=== PATIENT | male | born 2000 | race Hispanic/Latino ===

== ENCOUNTER 2025-05-22 00:35 | Inpatient (IN) | payer BC, SELFPAY ==
[2025-05-21 17:35] VITALS: BMI 45.6
[2025-05-21 18:00] VITALS: BP 132/78
[2025-05-21 18:04] LABS: Urine Character Clear (Clear)
[2025-05-21 18:05] LABS: Hematocrit 43.5 % (39.0-52.0); Hemoglobin 15.1 g/dL (13.0-18.0); Mean Corp Hgb Conc. 34.7 g/dL (33.0-37.0); Mean Corpuscular Volume 81.5 fL (80.0-94.0); Nucleated Red Blood Cells % 0 % (-); Platelet Count 213 10^3/uL (130-400); Red Cell Dist. Width 12.7 % (11.5-14.5)
[2025-05-21 18:10] LABS: Urine Squamous Cell 0-2 /LPF (Few)
[2025-05-21 18:11] LABS: Urine White Cell 0-2 /HPF (0-5)
[2025-05-21 18:21] LABS: ALT (SGPT) 224 U/L (0-50); AST (SGOT) 119 U/L (17-59); Albumin 4.5 g/dl (3.5-5.0); Alkaline Phosphatase 143 U/L (38-126); Blood Urea Nitrogen 17 mg/dl (9-20); Calcium 9.4 mg/dl (8.4-10.2); Carbon Dioxide 26 mmol/L (22-30); Chloride 104 mmol/L (98-107); Glucose 171 mg/dl (70-99); Lipase 70 U/L (23-300); Potassium 3.7 mmol/L (3.5-5.1); Sodium 137 mmol/L (135-145); Total Protein 7.2 g/dl (6.3-8.2); eGFR > 60.00
[2025-05-21] MEDS: TORADOL 15 MG IV (20:16)
--- NOTE | 2025-05-21 20:26 | ED.GENMED ---
History of Present Illness
General
Chief Complaint: Abdominal Pain
Time Seen by Provider: 05/21/25 19:49
History of Present Illness
History of Present Illness:
25-year-old male without significant past medical history presenting for intermittent pain to the lower abdomen. Patient reports symptoms for the past several days. Pain is primarily in the right lower quadrant of the abdomen. Does note some
discomfort with urination, particularly at the beginning and at the end of the stream. Denies any cloudiness of urine. Denies any abnormal discharge or concern for STD. Feels like the pain goes into his right testicle. Denies any history of
kidney stones. Denies chest pain or difficulty breathing. Denies nausea or vomiting. Denies any changes in his stool. Reports history of appendectomy. Denies additional acute medical complaints
Past History
Past History
ED Past Medical History: None
ED Past Surgical History: None
Social History
Tobacco: Non-smoker
Alcohol: None
Drug: None
Phy Exam
Physical Exam
Physical Exam:
General: Well-appearing, no clinical signs of dehydration, nontoxic and in no acute distress
HEENT: protecting airway
Neck: appears supple
CV: Normal heart rate, regular rhythm
Resp: No accessory muscle use, no increased work of breathing
Abd: Soft and non-distended, focal tenderness to the right lower quadrant without rebound or guarding
Extremities: No deformities, no swelling
Neuro: alert, no focal neurologic deficit
: No abnormality to the testicles, no swelling. No abnormality to the penis
Rectal: deferred
Psych: Normal affect
Skin: Intact
Course
Orders/Labs/Results
Orders:
Orders
05/21/25 17:52
Complete Blood Count/With Diff Urgent
Comprehensive Metabolic Panel Urgent
Lipase Urgent
05/21/25 17:58
Urinalysis Reflex To Culture Urgent
Date Specimen was Collected: 05/21/25
Time Specimen was Collected: 17:49
Urine Microscopic Reflex Cult Urgent
05/21/25 20:06
Ketorolac [Toradol] 15 mg IV NOW STA
05/21/25 20:30
CT Abd/pel Without Iv Or Oral Urgent
Comment:
Reason For Exam: right sided pain, suspected stone
05/21/25 21:47
Acetaminophen [Tylenol] 1,000 mg PO NOW STA
05/21/25 22:32
Piperacillin/Tazo 4.5 Gram [Zosyn] 4.5 gram in 100 ml IV NOW
Abnormal Lab Results
05/21/25 05/21/25
17:52 17:58
WBC 13.0 H 10^3/uL
(4.8-10.8)
MPV 11.0 H fL
(7.4-10.4)
Abs Immat Gran (auto) 0.1 H 10^3/uL
(0-0.05)
Absolute Neuts (auto) 8.7 H 10^3/uL
(1.4-6.5)
Absolute Monos (auto) 0.9 H 10^3/uL
(0.1-0.6)
Creatinine 0.6 L mg/dL
(0.7-1.3)
Glucose 171 H mg/dl
(70-99)
AST 119 H U/L
(17-59)
ALT 224 H U/L
(0-50)
Alkaline Phosphatase 143 H U/L
(38-126)
Ur Occult Blood Reflex 1+ A
(Negative)
Urine RBC 3-6 A /HPF
(0-2)
Urine Bacteria (Reflex) Few A
(Negative)
Urine Glucose 2+ A
(Negative)
Urine Albumin (Reflex) 3+ A
(Neg - Trace)
05/21/25 17:52
05/21/25 17:52
Vital Signs
Initial and Last Documented VS:
Initial Vital Signs
Temp Pulse Resp Pulse Ox
98.7 F 107 15 98
05/21/25 17:47 05/21/25 17:47 05/21/25 17:47 05/21/25 17:47
Last Documented Vital Signs
Temp Pulse Resp Pulse Ox
98.7 F 107 15 98
05/21/25 17:47 05/21/25 17:47 05/21/25 17:47 05/21/25 20:28
MDM/Problems Addressed
MDM/Problems Addressed:
25-year-old male presenting to the emergency department for lower abdominal pain. Vital signs on arrival are significant for mild tachycardia.
On exam, patient resting comfortably, no acute distress. Focal tenderness to the right lower quadrant of the abdomen. Does note associated urinary symptoms. Differential considerations include nephrolithiasis versus cystitis. No history of
appendectomy without concern for appendicitis. No abnormality to the testicles without concern for orchitis/epididymitis/torsion. Labs obtained prior to my test, mild leukocytosis. Also evidence of mild transaminitis, however did have elevation
of LFTs in 2020. No focal right upper quadrant abdominal pain without concern for cholecystitis or choledocholithiasis. Urine does show some blood. Again concern for nephrolithiasis. Plan for CT abdominal imaging. Toradol administered for pain
22:30 - CT shows sigmoid perforation with mild inflammatory soft tissue stranding, suspected diverticulosis versus diverticulitis. The soft tissue stranding is continuous with the margin of the urinary bladder, which is likely patient's urinary
discomfort. However there is no intravesical gas to suggest an enterovesical fistula. Will start patient antibiotics and discussed with colorectal surgery
*Pulse Oximetry
SaO2: 98
Oxygen Mode of Delivery: Room air
Patient hypoxic: no
*Critical Care Note
Total Time (30-74mins, 75-104mins- exclusive of procedures): Not Applicable
ED Attending Note
-
Portions of this chart may have been created with voice recognition software.� Occasional wrong word or��sound alike� substitutions may have occurred due to the inherent limitations of voice recognition software.
Discharge Plan
Departure
Prescriptions:
No Action
No Current Medications
0
Referrals:
UNKNOWN - PT DOES,NOT KNOW [Family Provider]
Interventions
Interventions:
*Risk Screen - Suicide Last Done: 05/21/25 17:47
*General Assessment Last Done: 05/21/25 17:47
*Neglect/Abuse Screening Last Done: 05/21/25 17:47
*ED COVID-19 Vaccine History Last Done: 05/21/25 17:47
*ED Influenza Vaccine History Last Done: 05/21/25 17:47
Discharge Date and Time
Print Language: TUNISIAN
[2025-05-21] MEDS: TYLENOL 1000 MG PO (21:57)
[2025-05-21] MEDS: ZOSYN 100 IV (23:09)
[2025-05-21] MEDS: MORPHINE SULFATE 4 MG IV (23:09)
[2025-05-21] MEDS: NSS 1000 IV (23:10)
--- NOTE | 2025-05-22 00:37 | HPS.HSE ---
Addendum entered and electronically signed by Shon Santa MD 05/22/25 13:36:
Patient is a 25-year-old male with no PMH (was seen in 2019 for abdominal pain, CT at that time showed inflammation in the TI; underwent colonoscopy by Dr. Chowdary 01/2020 and colon/TI appeared normal, random biopsies normal) who presents with acute
abdominal pain for the last 5 days, significantly worsening yesterday. He denies any constipation, diarrhea or hematochezia. He does have rare episodes of abdominal pains that usually resolve in a couple of days, but this happens once a year or
less. Denies any chest pain/SOB or fevers. In the ED, WBC was 13.[address] scan showed sigmoid inflammation associated with microperforation, presumably due to diverticulitis
AFVSS, ABD soft, protuberant, nondistended, diffuse mild tenderness with moderate tenderness in the lower quadrants, no rebound or guarding
WBC 13.2, LFTs mildly elevated, BMP and CRP pending
� Sigmoid colitis with microperforation; presumably diverticulitis, other etiologies include inflammatory and infectious; very unlikely include ischemia or malignancy
� Personally reviewed CT and interpreted; he may have 1 or 2 diverticula, but the burden of diverticulosis is minimal; would rule out inflammatory bowel versus infectious etiology before assuming this is diverticulitis
� Will send stool studies, CRP and fecal calprotectin
�Will consult GI, discussed with Dr. Moran
�Mildly elevated LFTs
�Known history of hepatic steatosis; will defer to GI versus PCP as an outpatient
�Recommend bowel rest with n.p.o. and IVF
� Continue IV Zosyn
� Pain control with Toradol and Dilaudid as needed
� DVT PPx with Lovenox
Original Note:
Family Physician
-
Family Physician: NOT KNOW UNKNOWN - PT DOES
Chief Complaint
-
lower abdomen pain
History of Present Illness
25 year old patient presents to ER with the c/o Abdominal pain. Reports he has been having sharp pain across lower abdomen pain, radiating to both groin since Sunday, pain worsened today which prompted him to visit ER. States he is also having
pain with beginning of urination and at the end of the stream, also he don' think he is emptying enough and feels sore. Denies burning, cloudy urine or blood urine. Denies nausea, vomiting, last normal brown stool 10/ Lunch time. reports chills,
denies chest pain or shortness of breath.
Medical History
Past Medical History
Past Medical History: Reports None
Additional Past Medical History:
Hepatic Fatty infiltration
Past Surgical History: Reports Appendectomy
Social History
Tobacco: Vaping
Alcohol: None
Drug: None
Living: With Family
Family History
Family History: Not pertinent
Allergies / Home Medications
Allergies reflects when Allergies were last updated in [facility].
Home Medications with original date entered in [facility]
Allergy/Medication List:
Allergies
Allergy/AdvReac Type Severity Reaction Status Date / Time
No Known Allergies Allergy Verified 12/03/19 09:38
Home Medications
No Meds [No Current Medications] 11/23/19
Review of Systems
-
History Source: Patient
A 12 point ROS was completed and negative except as noted: Yes
Constitutional: Reports No Symptoms
EENT: Reports No Symptoms
Respiratory: Reports No Symptoms
Cardiac: Reports No Symptoms
Abdomen/GI: Reports Abdominal Pain
: Reports Difficulty Voiding
Musculoskeletal: Reports No Symptoms
Skin: Reports No Symptoms
Neurological: Reports No Symptoms
Endocrine: Reports No Symptoms
Hematologic/Lymphatic: Reports No Symptoms
Psych: Reports No Symptoms
Physical Exam
Vital Signs
Vital Signs
Temp Pulse Resp Pulse Ox
98.7 F 107 15 98
05/21/25 17:47 05/21/25 17:47 05/21/25 17:47 05/21/25 20:28
Physical Exam
General: No Apparent Distress, Conversant and Obese
HEENT: NormoCephalic and Atraumatic
Respiratory: Clear and Non Labored Respirations
Cardiac: S1/S2, Regular Rhythm and Tachycardia
Breast: Deferred by me
GI: Soft, Non Distended, Normal Bowel Sounds and Tender
Rectal: Deferred by Provider
Genito-urinary: No costovertebral tender and Other (neg torsion signs, neg epididymitis signs)
Musculoskeletal: No Clubbing and No Cyanosis
Skin: Warm and Dry
Neuro: Awake and AO x 3
Hematologic/Lymphatic: No Lymphadenopathy
Psych: Calm and Intact Judgment/Insight
Laboratory Results
-
05/21/25 17:52
05/21/25 17:52
Laboratory Results
Total Bilirubin 0.4 mg/dl (0.2-1.3) 05/21/25 17:52
AST 119 U/L (17-59) H 05/21/25 17:52
ALT 224 U/L (0-50) H 05/21/25 17:52
Alkaline Phosphatase 143 U/L (38-126) H 05/21/25 17:52
Lipase 70 U/L (23-300) 05/21/25 17:52
Data Reviewed
-
CT Scan: Report Reviewed by me
Lab Data: Labs Reviewed by me
Impression/Plan
-
25 y/o with lower abdomen pain
# Abdomen pain likely due to
CT abd/pelvis:Sigmoid microperforation with inflammatory soft tissue stranding. No focal collection/abscess. Presumably related to diverticulosis/diverticulitis.
-WBC 13.0
-NPO
-Continue IV Zosyn
-Continue IV Fluids
-Continue IV analgesics
-Admit to Med surgical
-Dr. Felder
#Dysuria Likely due to
CT abd/pelvis: Inflammatory soft tissue stranding is continuous with the margin of the urinary bladder
-Bladder scan
-UA
Full code
SCD's
--- NOTE | 2025-05-22 03:10 | PTCARENOTE ---
Patient received from ED and walked into room. Patient vitals were stable and no sign of distress. Patient was oriented to room and call [facility] within reach.
[2025-05-22 03:14] VITALS: BP 139/82; BMI 44.2
[2025-05-22] MEDS: NSS 1000 IV ×2 (03:32→15:30)
[2025-05-22] MEDS: TORADOL 15 MG IV ×3 (05:20→19:19)
[2025-05-22] MEDS: ZOSYN 100 IV ×3 (05:28→19:14)
--- NOTE | 2025-05-22 07:41 | CON.CRS ---
Consultation
-
Date/Time Consultation Requested: 05/22/2025, 00:30
Date/Time Consultation Performed: 05/22/2025, 00:30
Requesting Provider: Jacques Sy
Performing Provider: Nestor Felder MD
Reason for Consultation: diverticulitis
Medical History
-
Chief Complaint: abdominal pain
History of Present Illness:
25 yo male, with a PMH of an appendectomy and fatty liver, presents to the ER complaining of abdominal pain. He states this has waxed and waned in the past, but it has never been this bad. This time the pain was so severe, he couldn't walk or drive.
He states the pain is 'stinging'. The last time he had pain was a year ago and was more mild. His abdominal pain started in 2019. He has not followed up with his PCP or GI. Back in 2019, he came to the ER with RUQ abdominal pain. CT of the A/P
showed a mildly inflamed terminal ileum, with adjacent mildly prominent lymph nodes, question inflammatory bowel disease such as Crohn's. Appendix within normal limits. Following this, he had a colonoscopy in [address] Chowdary and was negative for
polyps and nonbleeding internal hemorrhoids were found.
CT in the ER showed sigmoid microperforation with inflammatory soft tissue stranding. No focal collection/abscess. Presumably related to diverticulosis/diverticulitis. WBC was 13.0. He states he felt febrile but had no temp on admission to the ER.
Vitals remain normal. Given these findings, we having been consulted for surgical recommendations.
Past Medical History
Past Medical History: Other (fatty liver)
Past Surgical History: Appendectomy
Social History
Tobacco: Vaping
Alcohol: None
Drug: None
Living: With Family
Family History
Family History: Reviewed & Not Pertinent
Allergies / Home Medications
Allergy/AdvReac Type Severity Reaction Status Date / Time
No Known Allergies Allergy Verified 12/03/19 09:38
�Medication �Instructions �Recorded �Confirmed �Type
No Meds [No Current Medications] 11/23/19 05/22/25 History
Review of Systems
-
History Source: Patient
Abdomen/GI: Abdominal Pain
: Dysuria
A 10 point review of systems was completed, and was negative except as per HPI.
Physical Exam
Vital Signs
Temp 98.8 F 05/22/25 03:14
Pulse 88 05/22/25 03:14
Resp Rate 20 05/22/25 03:14
Blood pressure 139/82 05/22/25 03:14
SaO2 99 05/22/25 03:14
05/21/25 05/22/25 05/23/25
06:59 06:59 06:59
Actual Weight 128.026 kg
Body Mass Index (BMI) 44.2
Lab Results / Allergies
05/21/25 17:52
05/21/25 17:52
WBC 13.0 10^3/uL (4.8-10.8) H 05/21/25 17:52
Hgb 15.1 g/dL (13.0-18.0) 05/21/25 17:52
Hct 43.5 % (39.0-52.0) 05/21/25 17:52
Plt Count 213 10^3/uL (130-400) 05/21/25 17:52
Abs Immat Gran (auto) 0.1 10^3/uL (0-0.05) H 05/21/25 17:52
Neutrophils % 66.7 % (42.2-75.2) 05/21/25 17:52
Allergy/AdvReac Type Severity Reaction Status Date / Time
No Known Allergies Allergy Verified 12/03/19 09:38
Physical Exam
General: Well Developed, Well Nourished and No Apparent Distress
GI: Soft and Tender (RUQ - moderate, b/l lower abdominal - mild)
Skin: Warm and Dry
Neuro: AO x 3
Psych: Calm
Data Reviewed
-
CT Scan: Image Personally Visualized and interpreted, Report Reviewed by me and Discussed with Patient
Medical Tests (Nuc Med, Echo etc): Image Personally Visualized and interpreted, Report Reviewed by me and Discussed with Patient
Old Records: Reviewed
Assessment / Plan
-
Assessment: 25yo male with a five year history of abdominal pain, found with sigmoid microperforation with inflammatory soft tissue stranding
Plan:
-Remain NPO
-Trend WBC and CRP, labs ordered this AM
-No plans for surgery at this time, if he worsens, he will require a colectomy with colostomy creation
-Continue IV antibiotics
-Consult gastroenterology - discussed case with Dr. Moran
-Stool cultures and c.diff pending
-Recommend DVT prophylaxis
-Will follow
[2025-05-22 08:00] VITALS: BP 121/76
[2025-05-22 08:49] LABS: Hematocrit 39.5 % (39.0-52.0); Hemoglobin 13.4 g/dL (13.0-18.0); Mean Corp Hgb Conc. 33.9 g/dL (33.0-37.0); Mean Corpuscular Volume 83.0 fL (80.0-94.0); Nucleated Red Blood Cells % 0 % (-); Platelet Count 180 10^3/uL (130-400); Red Cell Dist. Width 12.8 % (11.5-14.5)
[2025-05-22 09:12] LABS: Blood Urea Nitrogen 14 mg/dl (9-20); Calcium 8.5 mg/dl (8.4-10.2); Carbon Dioxide 26 mmol/L (22-30); Chloride 108 mmol/L (98-107); Estimated Creatinine Clearance > 125 ml/min; Glucose 164 mg/dl (70-99); Potassium 3.8 mmol/L (3.5-5.1); Sodium 138 mmol/L (135-145); eGFR > 60.00
[2025-05-22 09:13] LABS: C-Reactive Protein 72.70 mg/L (0.0-10.00)
[2025-05-22] MEDS: MORPHINE SULFATE 2 MG IV ×2 (10:39→16:57)
--- NOTE | 2025-05-22 11:04 | CM ---
Patient seen at bedside on . Patient states that he lives with his parents in a 2 story home but may go home with his girlfriend pending how he feels closer to discharge. Patient does not have PCP at this time but is open to looking at list of
PCP options. Patient uses the [facility] for pharmacy needs. Patient plan is for discharge home with no needs at this time.
Plan; home with family vs home with girlfriend; watch for any VN needs.
--- NOTE | 2025-05-22 12:20 | CON.GI ---
Addendum entered and electronically signed by Marcial Moran MD 05/22/25 19:31:
I personally performed a history and physical exam of the patient and discussed management with the resident. I reviewed the resident's note and agree with the documented findings and plan of care HPI/CC.
25-year-old male with past medical history of CT in 2019 that showed mildly inflamed terminal ileum with prominent lymph nodes underwent a colonoscopy with Dr. Chowdary which was negative for any signs of Crohn's. Since that time, according to the
patient and the family at bedside, he has had more frequent bowel movements although solid. His feels like a sensitive is more stomach and 30 minutes after eating he often burps and has a bowel movement. Last month he had an episode of food
poisoning and was constipated and took laxatives and had severe abdominal pain. Now he is coming in with right-sided abdominal pain that shoots to the left side that radiates also to his testicles and anus. He also has fevers. Denies any NSAID
use, recent alcohol use. He underwent a CT scan which showed sigmoid microperforation with inflammatory soft tissue stranding suspected related to diverticulitis. Incidentally found fatty liver.
Differential diagnosis includes diverticulitis, IBD, less likely colon malignancy. Plan for colonoscopy in 6 to 8 weeks outpatient. I have given an appointment with me in the office June 17 to schedule colonoscopy. He also was incidentally
found to have fatty liver and we can work this up as an outpatient. This was briefly reviewed with the patient today.
In the interim, recommend antibiotics, pain medication, n.p.o., plan for surgery. I discussed with colorectal surgery Dr. Santa as well.
GI will sign off. Please call with any questions or issues.
Original Note:
Consultation
-
Date/Time Consultation Requested: 05/22/2025
Date/Time Consultation Performed: 05/22/2025
Requesting Provider: Melody Joya PA-C
Performing Provider: Sunil Cole Kimberly
Reason for Consultation: Perforated sigmoid colon
Medical History
Chief Complaint / HPI
Chief Complaint: Perforated sigmoid colon
History of Present Illness:
Mr. Britt is a 25 yo male, with a PMH of an appendectomy and fatty liver, presents to the ER complaining of abdominal pain. He states this has waxed and waned in the past specifically food poisoning which made him constipated and he took miralax,
but it has never been this bad. This time the pain was so severe, he couldn't walk or drive. He states the pain is 'stinging'. The last time he had pain was a year ago and was more mild. His abdominal pain started in 2019. He has not followed up
with his PCP or GI. Back in 2019, he came to the ER with RLQ abdominal pain. CT of the A/P showed a mildly inflamed terminal ileum, with adjacent mildly prominent lymph nodes, question inflammatory bowel disease such as Crohn's. Appendix within
normal limits. Following this, he had a colonoscopy in [address] Chowdary and was negative for polyps and nonbleeding internal hemorrhoids were found. This episode started about 5 days ago and the pain started gradually 3 out of 10 pain up to 8-9 out
of 10 pain. 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 He states that the pain alleviated slightly with Tylenol and worsened
with defecation and urination. He denies fevers chills nausea or vomiting. He denies chronic NSAID use, and occasional alcohol use with 1 drink in the past 3 months. He does endorse drinking heavily last year during holidays. He reports having
formed bowel movements 3-4 times a day with no blood.
CT in the ER showed sigmoid microperforation with inflammatory soft tissue stranding. No focal collection/abscess. Presumably related to diverticulosis/diverticulitis. WBC was 13.0. He states he felt febrile but had no temp on admission to the ER.
He reports continued to have fevers and chills including today, with a recorded temperature of 101.9. He was started on IV fluids and Zosyn and pain medication with mild improvement in symptoms.
Past Medical History
Past Medical History: Other (Fatty liver)
Past Surgical History: Appendectomy
Social History
Tobacco: Vaping
Alcohol: Occasional
Drug: None
Living: With Family
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
Family History
Family History: Reviewed & Not Pertinent
Allergies / Home Medications
Allergy/AdvReac Type Severity Reaction Status Date / Time
No Known Allergies Allergy Verified 12/03/19 09:38
�Medication �Instructions �Recorded
No Meds [No Current Medications] 11/23/19
Review of Systems
-
History Source: Patient
Constitutional: Reports Fever and Chills
EENT: Reports No Symptoms; Denies Sore Throat or Runny Nose
Respiratory: Reports No Symptoms; Denies Cough or Trouble Breathing
Cardiac: Reports No Symptoms; Denies Chest Pain or Palpitations
Abdomen/GI: Reports Abdominal Pain and Nausea; Denies Vomiting, Diarrhea, Constipated, Bloody Stools or Black Stools
: Reports Dysuria
Musculoskeletal: Reports No Symptoms
Vital Signs
Temp Pulse Resp BP Pulse Ox
98.9 F 79 16 121/76 99
05/22/25 08:00 05/22/25 08:00 05/22/25 08:00 05/22/25 08:00 05/22/25 08:00
Physical Exam
Exam
General: Well Developed, Well Nourished and Pain
HEENT: Normocephalic and Anicteric
Respiratory: Clear, Wheezes and Non Labored Respirations
Cardiac: S1/S2 and Regular Rhythm
GI: Soft, Non Distended and Tender (Diffusely, most tenderness in the lower abdominal region, no guarding or rebound); Negative Normal Bowel Sounds (Hypoactive)
Skin: Warm and Dry
Neuro: Awake, Alert and Oriented
Results
WBC 13.2 10^3/uL (4.8-10.8) H 05/22/25 08:28
Hgb 13.4 g/dL (13.0-18.0) 05/22/25 08:28
Hct 39.5 % (39.0-52.0) 05/22/25 08:28
MCV 83.0 fL (80.0-94.0) 05/22/25 08:28
Plt Count 180 10^3/uL (130-400) 05/22/25 08:28
Absolute Neuts (auto) 9.1 10^3/uL (1.4-6.5) H 05/22/25 08:28
Sodium 138 mmol/L (135-145) 05/22/25 08:
Potassium 3.8 mmol/L (3.5-5.1) 05/22/25 08:28
Chloride 108 mmol/L (98-107) H 05/22/25 08:28
Carbon Dioxide 26 mmol/L (22-30) 05/22/25 08:28
BUN 14 mg/dl (9-20) 05/22/25 08:28
Creatinine 0.7 mg/dL (0.7-1.3) 05/22/25 08:28
Calcium 8.5 mg/dl (8.4-10.2) 05/22/25 08:28
Total Bilirubin 0.4 mg/dl (0.2-1.3) 05/21/25 17:52
AST 119 U/L (17-59) H 05/21/25 17:52
ALT 224 U/L (0-50) H 05/21/25 17:52
Alkaline Phosphatase 143 U/L (38-126) H 05/21/25 17:52
Lipase 70 U/L (23-300) 05/21/25 17:52
Diagnostic Image Results:
CT abdomen pelvis 05/21/25
IMPRESSION:
Sigmoid microperforation with inflammatory soft tissue stranding. No focal collection/abscess. Presumably related to diverticulosis/diverticulitis.
Inflammatory soft tissue stranding is continuous with the margin of the urinary bladder. There is no intravesical gas identified to suggest enterovesical fistula.
Fatty infiltration of liver.
Prior GI Procedures:
EGD: None
Colonoscopy:
02/11/2020
Impression: - The examined portion of the ileum was normal. Biopsied.
- Non-bleeding internal hemorrhoids.
- The examination was otherwise normal.
- Biopsies were taken with a cold forceps from the right
colon and left colon for evaluation of microscopic
colitis.
Pathology report:
A. Ileum, random, biopsy:
-Small intestinal mucosa with no specific pathologic change.
B. Colon, random right, biopsy:
-Colonic mucosa with no specific pathologic change.
C. Colon, random left, biopsy:
-Colonic mucosa with no specific pathologic change
Assessment / Plan
-
Patient is a 25-year-old male with PMH of fatty liver who presents with acute abdominal pain for the last 5 days, significantly worsening yesterday. He denies any constipation, diarrhea or hematochezia. He does have rare episodes of abdominal
pains that usually resolve in a couple of days, but this happens once a year or less. In the ED, WBC was 13.[address] scan showed sigmoid inflammation associated with microperforation, presumably due to diverticulitis
# Sigmoid microperforation
Possibly in the setting of diverticulitis
Colitis
Undiagnosed inflammatory bowel disease
- N.p.o.
- Antibiotics on Zosyn
- Pain medication
- Plan for outpatient colonoscopy in 6-8weeks
- Supportive care
This is a preliminary note, please refer to attending note for final recommendations.
-
-
Thank you for consultation and allowing me to participate in the patient's care. Please call the blood donor recruiter GI physician during the after hours with any questions or concerns.
[2025-05-22 12:30] VITALS: BP 139/96
[2025-05-22] MEDS: TYLENOL 650 MG PO ×2 (13:55→19:58)
[2025-05-22 15:55] VITALS: BP 132/82
[2025-05-22 23:13] VITALS: BP 128/84
[2025-05-23] MEDS: TORADOL 15 MG IV ×3 (02:09→19:47)
[2025-05-23] MEDS: ZOSYN 100 IV ×4 (02:09→19:45)
[2025-05-23 07:00] VITALS: BP 151/96
[2025-05-23 07:47] LABS: Blood Urea Nitrogen 13 mg/dl (9-20); Calcium 8.5 mg/dl (8.4-10.2); Carbon Dioxide 25 mmol/L (22-30); Chloride 108 mmol/L (98-107); Estimated Creatinine Clearance > 125 ml/min; Glucose 127 mg/dl (70-99); Potassium 3.4 mmol/L (3.5-5.1); Sodium 139 mmol/L (135-145); eGFR > 60.00
[2025-05-23 08:06] LABS: C-Reactive Protein 221.80 mg/L (0.0-10.00)
[2025-05-23] MEDS: NSS 1000 IV ×2 (08:38→19:45)
[2025-05-23 13:05] LABS: Hematocrit 40.2 % (39.0-52.0); Hemoglobin 13.4 g/dL (13.0-18.0); Mean Corp Hgb Conc. 33.3 g/dL (33.0-37.0); Mean Corpuscular Volume 85.7 fL (80.0-94.0); Platelet Count 176 10^3/uL (130-400); Red Cell Dist. Width 13.1 % (11.5-14.5)
--- NOTE | 2025-05-23 13:14 | W.PN.CRS1 ---
Today's Communication / Plan
-
As below
Assessment/Plan
-
25-year-old male with no PMH (was seen in 2019 for abdominal pain, CT at that time showed inflammation in the TI; underwent colonoscopy by Dr. Chowdary 01/2020 and colon/TI appeared normal, random biopsies normal) who presents with acute abdominal pain for
the last 5 days, significantly worsening yesterday. He denies any constipation, diarrhea or hematochezia. He does have rare episodes of abdominal pains that usually resolve in a couple of days, but this happens once a year or less. Denies any
chest pain/SOB or fevers. In the ED, WBC was 13.[address] scan showed sigmoid inflammation associated with microperforation, presumably due to diverticulitis
Tmax 101.9, no fevers today VSS
WBC 16.9 from 13.2, Hb stable, CR 0.6, CRP 221 from 72
� Sigmoid colitis with microperforation; presumably diverticulitis, other etiologies include inflammatory and infectious; very unlikely include ischemia or malignancy
� Appreciate GI, will need cscope as outpatient in 6-8 weeks
�C. difficile negative, stool studies and fecal pending
�Mildly elevated LFTs, GI will follow-up as outpatient
�Known history of hepatic steatosis
� Okay for clears, continue IVF
� Continue IV Zosyn
� Pain control with Toradol and Dilaudid as needed
� DVT PPx with Lovenox
Subjective Data
Subjective Data
Date of Service: May 23, 2025
No overnight events. Patient states that he feels better and his pain has improved somewhat. Denies any N/V. Has had a few liquid stools.
Objective Data
-
Vital Signs
Temp Pulse Resp BP Pulse Ox
98.2 F 101 16 151/96 97
05/23/25 07:00 05/23/25 07:00 05/23/25 07:00 05/23/25 07:00 05/23/25 07:00
Intake & Output
05/22/25 05/23/25 05/24/25
06:59 06:59 06:59
Output Total 850 / 850 300 / 300
Balance -850 / -850 -300 / -300
Output:
Urine, Voided 850 / 850 300 / 300
Other:
Number of approximated MODERATE 1 2
amounts of urine
Lab Results
05/23/25 07:12
05/23/25 07:11
Physical Exam
-
General: No Acute Distress and AOx3
HEENT: Grossly Normal
Abdomen: Soft, Non Distended and Tender (Mildly diffusely tender, mildly to moderately tender in the lower abdomen, no rebound or guarding, improved from yesterday)
Skin: Warm and Dry
[2025-05-23] MEDS: TYLENOL 650 MG PO ×2 (13:58→22:03)
[2025-05-23 15:00] VITALS: BP 144/82
[2025-05-23] MEDS: LOVENOX 40 MG SC (17:30)
[2025-05-23 23:29] VITALS: BP 139/82
[2025-05-24] MEDS: ZOSYN 100 IV ×4 (02:57→21:30)
[2025-05-24] MEDS: NSS 1000 IV (04:07)
[2025-05-24] MEDS: TORADOL 15 MG IV (04:13)
[2025-05-24 07:10] VITALS: BP 134/87
[2025-05-24 08:01] LABS: Blood Urea Nitrogen 10 mg/dl (9-20); Calcium 8.4 mg/dl (8.4-10.2); Carbon Dioxide 25 mmol/L (22-30); Chloride 107 mmol/L (98-107); Estimated Creatinine Clearance > 125 ml/min; Glucose 113 mg/dl (70-99); Potassium 3.3 mmol/L (3.5-5.1); Sodium 137 mmol/L (135-145); eGFR > 60.00
[2025-05-24 08:19] LABS: C-Reactive Protein 189.70 mg/L (0.0-10.00)
[2025-05-24] MEDS: NSS IV (08:37)
[2025-05-24 09:05] LABS: Hematocrit 38.8 % (39.0-52.0); Hemoglobin 13.1 g/dL (13.0-18.0); Mean Corp Hgb Conc. 33.8 g/dL (33.0-37.0); Mean Corpuscular Volume 83.6 fL (80.0-94.0); Platelet Count 173 10^3/uL (130-400); Red Cell Dist. Width 12.8 % (11.5-14.5)
[2025-05-24] MEDS: KCL 1020 MEQ IV ×2 (10:32→21:18)
--- NOTE | 2025-05-24 14:22 | W.PN.CRS1 ---
Addendum entered and electronically signed by Shon Santa MD 05/24/25 19:36:
I saw and examined the patient.
The SALES DRIVER's note was reviewed and I agree with the note.
� Advance to regular
� Continue IV Zosyn
� Pain control with Toradol and morphine as needed; will add oral options
Original Note:
Today's Communication / Plan
-
Continue liquids
Assessment/Plan
-
25-year-old male with no PMH (was seen in 2019 for abdominal pain, CT at that time showed inflammation in the TI; underwent colonoscopy by Dr. Chowdary 01/2020 and colon/TI appeared normal, random biopsies normal) who presents with acute abdominal pain for
the last 5 days, significantly worsening yesterday. He denies any constipation, diarrhea or hematochezia. He does have rare episodes of abdominal pains that usually resolve in a couple of days, but this happens once a year or less. Denies any
chest pain/SOB or fevers. In the ED, WBC was 13.[address] scan showed sigmoid inflammation associated with microperforation, presumably due to diverticulitis
Sigmoid colitis with microperforation; presumably diverticulitis, other etiologies include inflammatory and infectious; very unlikely include ischemia or malignancy
� Appreciate GI, will need cscope as outpatient in 6-8 weeks
�C. difficile negative, stool studies and fecal pending
�Mildly elevated LFTs, GI will follow-up as outpatient
�Known history of hepatic steatosis
No fevers for >24hours, VSS
WBC 12.6 from 16.9, Hb stable, CR 0.6, CRP 189 from 221
Tolerating clears
Plan:
� Okay for clears, may be able to advance to fulls later today vs tomorrow
- continue IVF
� Continue IV Zosyn
� Pain control with Toradol and Dilaudid as needed
� DVT PPx with Lovenox
Subjective Data
Subjective Data
Date of Service: May 24, 2025
Pt seen and examined at bedside. Denies n/v. Passing small loose bm's frequently with flatus. Pain improving overall but more severe to the RLQ today. Still feels bloated but improving.
Objective Data
-
Vital Signs
Temp Pulse Resp BP Pulse Ox
97.9 F 82 16 134/87 99
05/24/25 11:10 05/24/25 07:10 05/24/25 07:10 05/24/25 07:10 05/24/25 07:10
Intake & Output
05/23/25 05/24/25 05/25/25
06:59 06:59 06:59
Intake Total 1440 / 1440
Output Total 850 / 850 1100 / 1100
Balance -850 / -850 340 / 340
Intake:
Oral fluids 1440 / 1440
Output:
Urine, Voided 850 / 850 1100 / 1100
Other:
Number of approximated SMALL 1
amounts of urine
Number of approximated MODERATE 2 2
amounts of urine
Lab Results
05/24/25 07:06
05/24/25 07:06
Physical Exam
-
General: No Acute Distress and AOx3
HEENT: Grossly Normal
Abdomen: Soft, Non Distended and Tender (Mildly diffusely tender, mildly to moderately tender in the right lower abdomen, no rebound or guarding, improved from yesterday)
Skin: Warm and Dry
[2025-05-24 15:57] VITALS: BP 124/78
[2025-05-24] MEDS: LOVENOX 40 MG SC (17:10)
[2025-05-24] MEDS: TYLENOL 1000 MG PO (21:26)
[2025-05-24 23:00] VITALS: BP 126/70
[2025-05-25] MEDS: ZOSYN 100 IV ×3 (02:26→14:06)
[2025-05-25] MEDS: KCL 1020 MEQ IV (06:38)
[2025-05-25] MEDS: TORADOL 15 MG IV (06:42)
[2025-05-25 07:00] VITALS: BP 143/84
[2025-05-25 08:35] LABS: Hematocrit 37.5 % (39.0-52.0); Hemoglobin 12.8 g/dL (13.0-18.0); Mean Corp Hgb Conc. 34.1 g/dL (33.0-37.0); Mean Corpuscular Volume 83.3 fL (80.0-94.0); Platelet Count 202 10^3/uL (130-400); Red Cell Dist. Width 12.7 % (11.5-14.5)
[2025-05-25 08:57] LABS: Blood Urea Nitrogen 8 mg/dl (9-20); Calcium 8.9 mg/dl (8.4-10.2); Carbon Dioxide 27 mmol/L (22-30); Chloride 107 mmol/L (98-107); Estimated Creatinine Clearance > 125 ml/min; Glucose 118 mg/dl (70-99); Magnesium 2.0 mg/dl (1.6-2.3); Potassium 4.0 mmol/L (3.5-5.1); Sodium 139 mmol/L (135-145); eGFR > 60.00
[2025-05-25 09:07] LABS: C-Reactive Protein 72.60 mg/L (0.0-10.00)
[2025-05-25] MEDS: KCL IV (09:49)
--- NOTE | 2025-05-25 11:08 | W.PN.CRS1 ---
Addendum entered and electronically signed by Shon Santa MD 06/08/25 08:05:
For CDI clarification, diagnoses include
� Sepsis, POA (2 SIRS criteria plus souce - diverticulitis)
�Obesity class III
Original Note:
Today's Communication / Plan
-
discharge
finish course of abx
Assessment/Plan
-
25-year-old male with no PMH (was seen in 2019 for abdominal pain, CT at that time showed inflammation in the TI; underwent colonoscopy by Dr. Chowdary 01/2020 and colon/TI appeared normal, random biopsies normal) who presents with acute abdominal pain for
the last 5 days, significantly worsening yesterday. He denies any constipation, diarrhea or hematochezia. He does have rare episodes of abdominal pains that usually resolve in a couple of days, but this happens once a year or less. Denies any
chest pain/SOB or fevers. In the ED, WBC was 13.[address] scan showed sigmoid inflammation associated with microperforation, presumably due to diverticulitis
Sigmoid colitis with microperforation; presumably diverticulitis, other etiologies include inflammatory and infectious; very unlikely include ischemia or malignancy
� Appreciate GI, will need cscope as outpatient in 6-8 weeks
�C. difficile negative, stool studies and fecal pending
�Mildly elevated LFTs, GI will follow-up as outpatient
�Known history of hepatic steatosis
No fevers for >24hours, VSS
WBC 9.3, Hgb 12.8, Crp 72 (189)
Plan:
� Tolerating a regular diet
- continue IVF
� Continue IV Zosyn
� Pain control with Toradol and Dilaudid as needed
� DVT PPx with Lovenox
- OKay for d/c today. All discharge instructions discussed with patient. Finish course of abx. Follow up as an otpatient.
Subjective Data
Subjective Data
Date of Service: May 25, 2025
Patient states he feels 4/10 discomfort. Pain has overall improved. Denies nausea or vomiting. Having bowel function.
Objective Data
-
Vital Signs
Temp Pulse Resp BP Pulse Ox
98.1 F 61 16 143/84 99
05/25/25 07:00 05/25/25 07:00 05/25/25 07:00 05/25/25 07:00 05/25/25 07:00
Intake & Output
05/24/25 05/25/25 05/26/25
06:59 06:59 06:59
Intake Total 1440 / 1440 4080 / 4080
Output Total 1100 / 1100
Balance 340 / 340 4080 / 4080
Intake:
Oral fluids 1440 / 1440 1380 / 1380
IV fluids (Total) 2500 / 2500
IV piggybacks 200 / 200
Output:
Urine, Voided 1100 / 1100
Other:
Number of approximated SMALL 1
amounts of urine
Number of approximated MODERATE 2 1
amounts of urine
Number of approximated LARGE 2
amounts of urine
Lab Results
05/25/25 07:58
05/25/25 07:58
Physical Exam
-
General: No Acute Distress and AOx3
Abdomen: Soft, Non Distended and Non Tender
Skin: Warm and Dry
--- NOTE | 2025-05-25 12:02 | CM ---
Home today, no needs.
Plan; Home no needs.
[2025-05-25 15:00] VITALS: BP 151/96
--- NOTE | 2025-05-25 15:09 | PN.CDI ---
CDI
- -
CDI:
Physician Documentation Request
Admit Date: 05/22/25 00:35
Dear Doctor Kiet,
Patient admitted with sigmoid colitis with microperforation.
Please review the following and provide your response in the progress notes.
Clinical Indicators:
Height: 5' 7'
Weight: 282 lb 4 oz
BMI: 44.2
Please provide an associated diagnosis related to the abnormal BMI, such as:
Morbid obesity
Obesity
Other
BMI > or = to 40
Overweight
Obesity:
Due to excess calories
Drug induced
Due to other cause
Severe or morbid obesity:
With alveolar hypoventilation (Obesity hypoventilation syndrome)
Without alveolar hypoventilation
-
Use of terms such as suspected, likely, concern for, or probable (associated with a specific diagnosis that is being evaluated, monitored, or treated as if it exists) are acceptable and can be coded in the inpatient setting, when documented at the
time of discharge.
Thank you,
Tabitha TROY,RN,CCDS
CDI Specialist
Available via tiger text
Please use your independent medical judgment in providing your response.
[2025-05-29 05:38] LABS: Calprotectin, Fecal 17 ug/g (<=49)
--- NOTE | 2025-06-05 08:55 | PN.CDI ---
CDI
- -
CDI:
Physician Documentation Request
Admit Date: 05/22/25 00:35
Dear Doctor Kiet,
Patient admitted with sigmoid colitis with microperforation.
05/24 PN, '...Continue IV Zosyn.'
On admission, WBC 13.0, T max 101.9 and HR >90.
Please clarify which of the following most accurately describes the status of the patient's infection:
Sepsis, POA
Sigmoid colitis with microperforation only
Other
Sepsis
- Systemic manifestations of infection, with 2 or more SIRS criteria which include:
- Fever >100.9 degrees F or hypothermia < 96.8 degrees F
- Leukocytosis - WBC > 12,000 or leukopenia - WBC < 4,000 or > 10% bands
- Tachycardia > 90 beats per minute
- Tachypnea - RR > 20 breaths per minute or PaCO2 , 32mmHg
Source: Merck Manual 2013
- Indicate the known or suspected organism
- Indicate the known or suspected underlying infection, such as sigmoid colitis with microperforation
Localized Infection Only, Without Systemic Illness
- indicate the site/source, such as sigmoid colitis with microperforation
Other
Use of terms such as suspected, likely, concern for, or probable (associated with a specific diagnosis that is being evaluated, monitored, or treated as if it exists) are acceptable and can be coded in the inpatient setting, when documented at the
time of discharge.
Thank you,
Tabitha TROY,RN,CCDS
CDI Specialist
Available via [employer] text
Please use your independent medical judgment in providing your response.
== END 2025-05-25 17:15 | disposition home or self-care (01) | DRG 872 ==
LOC: 4 WEST ACU 00:35
PROVIDERS: Emergency Medicine; Physician Assistant; Registered Nurse; ADMITTING PHYSICIAN Surgery; CONSULT PHYSICIAN Internal Medicine Gastroenterology; EMERGENCY PHYSICIAN Student in an Organized Health Care Education/Training Program; OTHER PHYSICIAN Surgery
DX: A41.9 Sepsis, unspecified organism (principal); K57.20 Diverticulitis of large intestine with perforation and abscess without bleeding; Z68.41 Body mass index [BMI] 40.0-44.9, adult; R30.0 Dysuria; E66.813 Obesity, class 3; K76.0 Fatty (change of) liver, not elsewhere classified; K64.8 Other hemorrhoids; Z90.49 Acquired absence of other specified parts of digestive tract
CPT/HCPCS: 74176; 80048; 80053; 81003; 81015; 83690; 83735; 83993; 84100; 85025; 85027; 86140; 87045; 87046; 87324; 87427; 87449; 96365; 96375; 99284

== ENCOUNTER → 2025-07-03 16:48 | Outpatient (REF) | payer BC, SELFPAY | LOC: RAD 16:48 | PROVIDERS: ATTENDING PHYSICIAN Internal Medicine Gastroenterology | DX: K57.92 Diverticulitis of intestine, part unspecified, without perforation or abscess without bleeding (principal) | CPT/HCPCS: 74177; Q9967 ==